=== PATIENT | male | born 1985 | race Caucasian/White ===

== ENCOUNTER 2018-12-16 21:51 | Emergency (ER) | payer BC ==
[2018-12-16] MEDS: IBUPROFEN 800 MG TAB PO (22:54)
== END 2018-12-17 00:06 | disposition home or self-care (01) ==
LOC: FTE 12-17 00:06
DX: S40.011A Contusion of right shoulder, initial encounter (principal); W18.39XA Other fall on same level, initial encounter; Y92.9 Unspecified place or not applicable
CPT/HCPCS: 73030; 73030-RT; 99283-25